=== PATIENT | male | born 1960 | race Caucasian/White ===

== ENCOUNTER 2017-05-05 21:11 | Emergency (ER) | payer OTHER ==
[~2017-05-05] VITALS: Ht 177.8 cm; Wt 85.1 kg
[~2017-05-05 21:11] MED LIST: CEPHALEXIN500 M1 PO; NO HOME MEDICATIONS
[2017-05-05 21:14] VITALS: BP 152/94; TEMP 97.5
[2017-05-05 22:19] VITALS: PULSE 80
== END 2017-05-05 22:19 | disposition home or self-care (01) ==
LOC: COL.ER 21:11
DX: S62.632A Displaced fracture of distal phalanx of right middle finger, initial encounter for closed fracture (principal); S62.634A Displaced fracture of distal phalanx of right ring finger, initial encounter for closed fracture; Z23 Encounter for immunization; W31.9XXA Contact with unspecified machinery, initial encounter; Y92.69 Other specified industrial and construction area as the place of occurrence of the external cause

== ENCOUNTER 2018-01-23 09:31 | Emergency (ER) | payer OTHER ==
[~2018-01-23] VITALS: Ht 177.8 cm; Wt 81.4 kg
[2018-01-23 09:41] VITALS: TEMP 98.3
[2018-01-23 10:01] LABS: BASO % 0.4 % (0.0-2.0); EOS # 0.1 (0.0-0.7); EOS % 1.5 % (0-4.0); GRAN # 4.1 (1.4-6.5); GRAN % 61.3 % (42.2-75.2); HEMATOCRIT 44.6 % (42.0-52.0); HEMOGLOBIN 15.7 g/dl (13.5-18.0); LYMPH % 29.4 % (20.0-51.0); MEAN CELL VOLUME 85 fl (80.0-100.0); MEAN CORPUSCULAR HEMOGLOBIN 30 pg (27.0-31.0); MEAN CORPUSCULAR HGB CONC 35 g/dl (33.0-37.0); MEAN PLATELET VOLUME 10.1 fl (7.4-10.4); MONO # 0.5 (0.1-0.6); MONO % 7.3 % (1.7-9.3); PLATELET COUNT 209 K/mm3 (130-400); RED BLOOD COUNT 5.23 M/mm3 (4.20-5.60); REDCELL DISTRIBUTION WIDTH-CV 12.3 % (11.5-14.5)
[2018-01-23 10:08] LABS: PROTHROMBIN TIME 11.8 SECONDS (9.7-12.8)
[2018-01-23 10:11] LABS: PARTIAL THROMBOPLASTIN TIME 31.9 SECONDS (26.0-37.0)
[2018-01-23 10:13] LABS: ALANINE AMINOTRANSFERASE 30 U/L (21-72); ALBUMIN 3.9 gm/dL (3.5-5.0); ALKALINE PHOSPHATASE 89 U/L (50-136); ANION GAP 12 mmol/L (7-16); AST,SGOT 20 U/L (15-37); BILIRUBIN,TOTAL 0.7 mg/dL (0.0-1.0); BLOOD UREA NITROGEN 15 mg/dL (9-20); CARBON DIOXIDE 22 mmol/L (22-30); CHLORIDE 108 mmol/L (98-107); CREATININE, serum 0.96 mg/dL (0.66-1.25); GLUCOSE 95 mg/dL (74-106); LIPASE 91 U/L (23-300); POTASSIUM 4.4 mmol/L (3.4-5.0); SODIUM 142 mmol/L (137-145); TOTAL PROTEIN 7.6 gm/dL (6.4-8.2)
[2018-01-23 10:25] LABS: TROPONIN-I < 0.012 ng/mL (0.000-0.034)
[2018-01-23 13:25] VITALS: BP 125/87; PULSE 93
== END 2018-01-23 13:27 | disposition home or self-care (01) ==
LOC: COL.ER 09:31
PROVIDERS: Emergency Medicine
DX: R07.89 Other chest pain (principal)

== ENCOUNTER → 2018-02-06 | Outpatient (CLI) | payer OTHER ==
[2018-02-06 09:12] LABS: CHOLESTEROL RISK RATIO 4.1
== END ==
LOC: COL.LAB 08:27
PROVIDERS: Internal Medicine Cardiovascular Disease
DX: R07.89 Other chest pain (principal)

== ENCOUNTER 2021-02-02 14:27 | Emergency (ER) | payer OTHER | END 2021-02-02 14:43 | disposition left against medical advice (07) | LOC: COL.ER 14:27 | DX: R69 Illness, unspecified (principal) ==

== ENCOUNTER 2021-02-02 16:37 | Emergency (ER) | payer OTHER ==
[~2021-02-02] VITALS: Ht 177.8 cm; Wt 81.4 kg
[2021-02-02 17:23] LABS: BASO % 0.3 % (0.0-2.0); EOS # 0.1 (0.0-0.7); EOS % 0.8 % (0-4.0); GRAN # 9.1 (1.4-6.5); GRAN % 78.4 % (42.2-75.2); HEMATOCRIT 43.8 % (42.0-52.0); HEMOGLOBIN 14.7 g/dl (13.5-18.0); LYMPH # 1.8 (1.2-3.4); LYMPH % 15.4 % (20.0-51.0); MEAN CELL VOLUME 88 fl (80.0-100.0); MEAN CORPUSCULAR HEMOGLOBIN 30 pg (27.0-31.0); MEAN CORPUSCULAR HGB CONC 34 g/dl (33.0-37.0); MEAN PLATELET VOLUME 10.2 fl (7.4-10.4); MONO # 0.6 (0.1-0.6); MONO % 4.8 % (1.7-9.3); PLATELET COUNT 255 K/mm3 (130-400); RED BLOOD COUNT 4.99 M/mm3 (4.20-5.60); REDCELL DISTRIBUTION WIDTH-CV 12.4 % (11.5-14.5)
[2021-02-02 17:36] LABS: LIPASE 132 U/L (23-300)
[2021-02-02 17:40] LABS: C-REACTIVE PROTEIN < 0.5 mg/dL (0.0-0.9)
[2021-02-02 17:44] LABS: ALANINE AMINOTRANSFERASE 19 U/L (4-49); ALBUMIN 3.8 gm/dL (3.5-5.0); ALKALINE PHOSPHATASE 81 U/L (50-136); ANION GAP 6 mmol/L (7-16); AST,SGOT 22 U/L (15-37); BILIRUBIN,TOTAL 0.5 mg/dL (0.0-1.0); BLOOD UREA NITROGEN 16 mg/dL (9-20); CARBON DIOXIDE 23 mmol/L (22-30); CHLORIDE 109 mmol/L (98-107); CREATININE, serum 1.37 (0.66-1.25); GLUCOSE 116 mg/dL (74-106); POTASSIUM 3.9 mmol/L (3.4-5.0); SODIUM 139 mmol/L (137-145); TOTAL PROTEIN 6.9 gm/dL (6.4-8.2)
[2021-02-02 17:55] LABS: COLLECTION METHOD CLEAN CATCH
[2021-02-02 18:11] LABS: MUCOUS Present /lpf; PH 7 (5-8); SQUAMOUS EPITHELIAL None Seen /hpf; URINE APPEARANCE Cloudy; URINE BACTERIA Rare /hpf; URINE BILIRUBIN Negative (NEGATIVE); URINE BLOOD 1+ (NEGATIVE); URINE COLOR Yellow; URINE GLUCOSE Negative (NEGATIVE); URINE KETONE 1+ (NEGATIVE); URINE LEUKOCYTE ESTERASE Negative (NEGATIVE); URINE NITRATE Negative (NEGATIVE); URINE PROTEIN(semi-quant) Negative (NEGATIVE); URINE RBC 20-50 /hpf; URINE UROBILINOGEN Negative (NEGATIVE)
[2021-02-02 21:00] VITALS: BP 137/82; PULSE 72; TEMP 98
== END 2021-02-02 21:00 | disposition home or self-care (01) ==
LOC: COL.ER 16:37
PROVIDERS: Nurse Practitioner Primary Care
DX: N20.1 Calculus of ureter (principal); Z88.6 Allergy status to analgesic agent
CPT/HCPCS: J1885; J2405; J7030; Q9967

== ENCOUNTER 2021-02-06 12:03 | Day surgery (SDC) | payer OTHER ==
--- NOTE | 2021-02-06 12:15 | NUR ---
PATIENT IS A DIRECT ADMIT INTO ROOM 348 FROM HOME WITH RIGHT KIDNEY STONE. A&O. PATIENT C/O RIGHT FLANK PAIN AND REQUESTING IV TORADOL, GIVEN. PATIENT REPORTS HE HAS TORADOL IN ER LAST MONDAY AND IT WORKED WELL. SEE ADMISSION ORDERS. CONSENT OBTAINED. 20 GAUZE IV STARTED ON FIRST ATTEMPT INTO RIGHT HAND. SURGERY PENDING THIS AFTERNOON.
[2021-02-06 12:21] VITALS: BP 127/65; PULSE 76; TEMP 97.6
--- NOTE | 2021-02-06 13:30 | NUR ---
PATIENT GOING DOWN TO OR VIA BED. AT BEDSIDE. CONSENT ON CHART. IV FLUIDS TO GRAVITY. PATIENT OFF FLOOR.
[2021-02-06] MEDS ORDERED: PYRIDIUM 100MG100 MG PO (14:35)
[2021-02-06] MEDS ORDERED: NORCO 325 MG-51 TAB PO (14:35)
[2021-02-06 15:10] VITALS: BP 148/81; PULSE 88; TEMP 98.9
--- NOTE | 2021-02-06 15:10 | NUR ---
PATIENT BACK IN ROOM POST OP. A&O. VSS. DENIES PAIN OR NAUSEA. HEAD TO TOE ASSESSMENT WNL. AT BEDSIDE. PATIENT WILL DISCHARGE HOME LATER TODAY.
[2021-02-06 15:25] VITALS: BP 136/73; PULSE 85
[2021-02-06 15:40] VITALS: BP 139/71; PULSE 69
[2021-02-06 16:03] VITALS: BP 144/78; PULSE 88; TEMP 99.3
== END 2021-02-06 18:00 | disposition home or self-care (01) ==
LOC: SDCO 12:03 → SURG 12:05 → SDCO 18:00
DX: N20.1 Calculus of ureter (principal); Z79.899 Other long term (current) drug therapy
CPT/HCPCS: OP; C1769; C1894; C2617; J0690; J1100; J1885; J2405; J2704; J3010; J7030; Q9967